=== PATIENT | male | born 1990 | race Two or more races ===

== ENCOUNTER 2024-09-15 08:23 | Emergency (ER) | payer MEDICAID ==
[~2024-09-15] VITALS: Ht 175.3 cm; Wt 68.0 kg
[2024-09-15 08:38] VITALS: BP 153/90; TEMP 97.9; O2SAT 99
[2024-09-15] MEDS ORDERED: CEPH500T PO (09:01)
[2024-09-15] MEDS ORDERED: CEPHALEXIN MONOHYDRATE 500 MG CAPSULE PO ONE (09:06)
[2024-09-15] MEDS: CEPHALEXIN MONOHYDRATE 500 MG CAPSULE PO ONE (09:11)
== END 2024-09-15 09:17 | disposition home or self-care (01) ==
LOC: ER 08:27
DX: L03.211 Cellulitis of face (principal)